=== PATIENT | male | born 1990 | race Caucasian/White ===

== ENCOUNTER 2017-07-03 14:27 | Inpatient (IN) ==
--- NOTE | 2017-07-03 14:38 | Emergency Department Note ---
Disposition Clinical Impression: Suicidal ideation, History of depression, History of anxiety Disposition: Admitted As Inpatient Condition: Good Referrals: NONE,PCP [Primary Care Provider] - Forms: ED Satisfaction Letter Time of Disposition: 19:54 (Admitted to 1A) Psych HPI - General Chief Complaint: ED Psychiatric Symptoms Stated Complaint: SI Time Seen by Provider: 07/03/17 14:38 Source: patient Mode of arrival: ambulatory Limitations: no limitations Nursing Notes Reviewed: Yes Vital Signs Reviewed: Yes - History of Present Illness HPI Narrative: Patient is a 26-year-old male with past medical history of depression, anxiety, bipolar disorder. He says that he has never been on medications for these behavioral health issues. Denies any previous admissions into behavioral health unit, denies any previous suicide attempts or ingestions. He does admit to a previous history of cutting. He presents today due to suicidal ideation with a plan. He said that he was sitting with a shot gun pointed towards his head at home just prior to arrival. He called EMS and came here for further help. He has been under multiple different stressors lately including a recent in the family. Denies any self-harm, cutting, ingestions today. Denies any other somatic complaints of chest pain, shortness breath, nausea, vomiting, fevers, diarrhea, abdominal pain. Denies any homicidal ideation, visual or auditory hallucinations. Admits to marijuana and opioid use but no other drug use or IV drug use. - Related Data Previous Rx's Medication Instructions Recorded Naproxen [EC-Naprosyn] 500 mg PO BID #10 tablet. 07/22/16 Ibuprofen [Motrin] 600 mg PO Q6HR PRN #40 tab MDD 3200 08/11/16 Ibuprofen [Motrin] 600 mg PO Q8HR PRN #15 tab 02/13/17 Penicillin VK 500 mg PO QID #28 tablet 02/13/17 Tramadol HCl [Ultram] 1 - 2 tab PO TID PRN #15 tab 02/13/17 Allergies Allergy/AdvReac Type Severity Reaction Status Date / Time No Known Allergies Allergy Verified 07/03/17 14:29 All systems ED: reviewed and negative except as stated. Constitutional: Denies: fever Cardiovascular: Denies: chest pain, palpitations Respiratory: Denies: cough Gastrointestinal: Denies: abdominal pain, nausea, vomiting, diarrhea, constipation Genitourinary: Denies: urgency, dysuria, frequency, hematuria Integumentary: Denies: rash Neurological: Denies: weakness, numbness, paresthesias Psychiatric: Reports: depression, suicidal thoughts. Denies: homicidal thoughts , auditory hallucinations, visual hallucinations Past Medical History - Past Medical History Attestation: Yes The following information was validated with the patient. Source: patient Medical history: Reports: no medical history Surgical history: Reports: no surgical history Psychiatric history: Reports: ADHD - Social History Smoking Status: Current every day smoker Smokeless Tobacco Status: No Alcohol use: Reports: none Drug use: Reports: none Physical Exam - General Limitations: no limitations General appearance: alert, in no apparent distress - Head Head exam: atraumatic, normocephalic, normal inspection - Eye Eye exam: Present: normal appearance, PERRL, EOMI - ENT ENT exam: normal exam, normal oropharynx, mucous membranes moist - Neck Neck exam: Present: normal inspection, full ROM, trachea midline - Chest Chest inspection: Present: normal inspection, symmetric chest wall rise - Respiratory Respiratory exam: Present: normal lung sounds bilaterally - Cardiovascular Cardiovascular exam: Present: regular rate, normal rhythm, normal heart sounds - Abdominal Exam Abdominal exam: Present: soft, Non-Tender. Absent: tenderness, distention, guarding, rebound, rigidity - Extremities Exam Extremities exam: Present: normal inspection, full ROM. Absent: tenderness, pedal edema - Neurological Exam Neurological exam: Present: alert, oriented X3 - Psychiatric Psychiatric exam: Present: depressed, agitated, flat affect, suicidal ideation. Absent: homicidal ideation - Skin Skin exam: Present: warm, dry, intact, normal color Course Course Narrative: Vitals within normal limits. Physical exam benign. Patient does have suicidal ideation with a plan to use a gun and access to gun at home. Lindstrom slip has been placed on chart. Medical clearance labs ordered. Patient will be evaluated by behavioral [facility]. 15:32 Medically cleared. Positive for marijuana use. 1A called. 19:53 patient has been seen and evaluated by behavioral health team. They have recommended admission for the patient due to suicidal ideation with a plan. Patient will be admitted to the behavioral health floor. Stable prior to admission. Vital Signs Temperature 98.0 F 07/03/17 14:30 Pulse Rate 69 07/03/17 14:30 Respiratory Rate 16 07/03/17 14:30 Blood Pressure 120/77 07/03/17 14:30 O2 Sat by Pulse Oximetry 99 07/03/17 14:30 Temperature 98.0 F 07/03/17 14:30 Pulse Rate 69 07/03/17 14:42 Respiratory Rate 14 07/03/17 14:42 Blood Pressure 120/77 07/03/17 14:42 O2 Sat by Pulse Oximetry 99 07/03/17 14:42 Oxygen Delivery Oxygen Delivery Room Air Psych - MDM Narrative Medical decision making narrative: Vitals within normal limits. Physical exam benign. Patient does have suicidal ideation with a plan to use a gun and access to gun at home. [place] slip has been placed on chart. Medical clearance labs ordered. [facility] 15:32 Medically cleared. Positive for marijuana use. 1A called. 19:53 patient has been seen and evaluated by behavioral health team. They have recommended admission for the patient due to suicidal ideation with a plan. Patient will be admitted to the behavioral health floor. Stable prior to admission. - Lab Data Lab results reviewed: Yes I reviewed the patient's lab results. Result diagrams: 07/03/17 14:53 07/03/17 14:53 Lab Results 07/03/17 07/03/17 07/03/17 Range/Units 14:48 14:48 14:53 WBC 8.7 (4.3-11.1) K/mcL RBC 5.39 (4.19-5.50) M/mcL Hgb 16.9 (12.9-16.9) g/dL Hct 46.9 (37.5-50.1) % MCV 87.0 (83.0-100.0) fL MCH 31.4 (28.0-33.3) pg MCHC 36.0 H (31.6-35.5) g/dL RDW 13.1 (11.5-14.5) % Plt Count 232 (140-400) K/mcL MPV 10.0 (9.4-12.4) fL Immature Gran % 0.2 (0-4) % Seg Neutrophils % 71.3 % Lymphocytes % 21.0 % Monocytes % 5.4 % Eosinophils % 0.8 % Basophils % 1.3 % Neutrophils # 6.2 (1.6-8.9) K/mcL Lymphocytes # 1.8 (0.6-4.6) K/mcL Monocytes # 0.5 (0.0-1.3) K/mcL Eosinophils # 0.1 (0.0-0.6) K/mcL Basophils # 0.1 (0.0-0.2) K/mcL Sodium (136-145) mEq/L Potassium (3.5-4.5) mEq/L Chloride (98-109) mEq/L Carbon Dioxide (19-29) mEq/L BUN (8-26) mg/dL Creatinine (0.72-1.25) mg/dL Est GFR ( Amer) (> 60) Est GFR (Non-Af Amer) (> 60) BUN/Creatinine Ratio (6-26) Glucose (70-99) mg/dL Calculated Osmolality (280-300) Calcium (8.6-10.8) mg/dL Urine Color Yellow (Yellow) Urine Clarity Clear (Clear) Urine pH 6.5 (5.0-8.0) pH Units Ur Specific [place] 1.028 H (1.010-1.025) Urine Protein Negative (Neg-Trace) mg/dL Urine Glucose (UA) Normal (Normal) mg/dL Urine Ketones Negative (Negative) mg/dL Urine Blood Negative (Negative) Urine Nitrite Negative (Negative) Urine Bilirubin Negative (Negative) Urine Urobilinogen Normal (Normal) mg/dL Ur Leukocyte Esterase Negative (Negative) Salicylates (15-30) mg/dL Urine Opiates Screen Negative (Lohngt=665) ng/mL Acetaminophen (10-30) mcg/mL Ur Barbiturates Screen Negative (Btikmg=372) ng/mL Ur Phencyclidine Scrn Negative (Cutoff=25) ng/mL Ur Amphetamines Screen Negative (Oysqml=0813) ng/mL U Benzodiazepines Scrn Negative (Spcmvl=810) ng/mL Urine Cocaine Screen Negative (Cutoff= 300) ng/mL U Marijuana (THC) Screen Positive H (Cutoff = 50) ng/mL Ethyl Alcohol (0-10) mg/dL 07/03/17 Range/Units 14:53 WBC (4.3-11.1) K/mcL RBC (4.19-5.50) M/mcL Hgb (12.9-16.9) g/dL Hct (37.5-50.1) % MCV (83.0-100.0) fL MCH (28.0-33.3) pg MCHC (31.6-35.5) g/dL RDW (11.5-14.5) % Plt Count (140-400) K/mcL MPV (9.4-12.4) fL Immature Gran % (0-4) % Seg Neutrophils % % Lymphocytes % % Monocytes % % Eosinophils % % Basophils % % Neutrophils # (1.6-8.9) K/mcL Lymphocytes # (0.6-4.6) K/mcL Monocytes # (0.0-1.3) K/mcL Eosinophils # (0.0-0.6) K/mcL Basophils # (0.0-0.2) K/mcL Sodium 140 (136-145) mEq/L Potassium 3.9 (3.5-4.5) mEq/L Chloride 105 (98-109) mEq/L Carbon Dioxide 27 (19-29) mEq/L BUN 10 (8-26) mg/dL Creatinine 1.05 (0.72-1.25) mg/dL Est GFR ( Amer) > 60 (> 60) Est GFR (Non-Af Amer) > 60 (> 60) BUN/Creatinine Ratio 10 (6-26) Glucose 97 (70-99) mg/dL Calculated Osmolality 289 (280-300) Calcium 10.2 (8.6-10.8) mg/dL Urine Color (Yellow) Urine Clarity (Clear) Urine pH (5.0-8.0) pH Units Ur Specific [place] (1.010-1.025) Urine Protein (Neg-Trace) mg/dL Urine Glucose (UA) (Normal) mg/dL Urine Ketones (Negative) mg/dL Urine Blood (Negative) Urine Nitrite (Negative) Urine Bilirubin (Negative) Urine Urobilinogen (Normal) mg/dL Ur Leukocyte Esterase (Negative) Salicylates < 5.0 L (15-30) mg/dL Urine Opiates Screen (Xzqnyo=224) ng/mL Acetaminophen < 1.0 L (10-30) mcg/mL Ur Barbiturates Screen (Aqjhvd=748) ng/mL Ur Phencyclidine Scrn (Cutoff=25) ng/mL Ur Amphetamines Screen (Chfxqs=9085) ng/mL U Benzodiazepines Scrn (Hemdfe=513) ng/mL Urine Cocaine Screen (Cutoff= 300) ng/mL U Marijuana (THC) Screen (Cutoff = 50) ng/mL Ethyl Alcohol < 10 (0-10) mg/dL Psychiatric Medical Clearance - Medical Clearance Checklist Medical History: Suicidal ideation (Acute) History of depression (Acute) History of anxiety (Acute) Contusion of shoulder, right (Inactive) Dental abscess (Inactive) Dental caries (Inactive) Toothache (Inactive) Toothache (Inactive) No Social History Section defined Current Vitals: Last Vital Signs Temp 98.0 F 07/03/17 14:30 Pulse 69 07/03/17 14:42 Resp 14 07/03/17 14:42 BP 120/77 07/03/17 14:42 Pulse Ox 99 07/03/17 14:42 Psychiatric Lab Panel: Drug Levels and Toxicity 07/03/17 07/03/17 14:48 14:53 Urine Opiates Screen Negative Acetaminophen < 1.0 L Ur Barbiturates Screen Negative Ur Phencyclidine Scrn Negative Ur Amphetamines Screen Negative U Benzodiazepines Scrn Negative Urine Cocaine Screen Negative U Marijuana (THC) Screen Positive H Ethyl Alcohol < 10 Abnormal Labs: Abnormal lab results MCHC 36.0 g/dL (31.6-35.5) H 07/03/17 14:53 Ur Specific [place] 1.028 (1.010-1.025) H 07/03/17 14:48 Salicylates < 5.0 mg/dL (15-30) L 07/03/17 14:53 Acetaminophen < 1.0 mcg/mL (10-30) L 07/03/17 14:53 U Marijuana (THC) Screen Positive ng/mL (Cutoff = 50) H 07/03/17 14:48 Attestation Statement - Attestation Attestation: I examined this patient and my medical decision-making was reviewed with the Resident Physician. I agree with the documented findings, disposition and treatment plan as described except to the extent set forth below. Suicidal ideations with plan of shooting himself mad. He will not disclose whether he has access to guns. He has not cooperative on arrival and agitated with tangential thought process and impulsive behavior. Plan to admit for psychiatric evaluation
[2017-07-03] MEDS ORDERED: Haloperidol Lactate 5 MG/ML VIAL IM ONE (14:43)
[2017-07-03] MEDS ORDERED: *HR* LORazepam 2 MG/ML VIAL IM ONE (14:44)
[2017-07-03 15:00] LABS: Basophils # 0.1 K/mcL (0.0-0.2); Basophils % 1.3 %; Eosinophils # 0.1 K/mcL (0.0-0.6); Eosinophils % 0.8 %; Hematocrit 46.9 % (37.5-50.1); Hemoglobin 16.9 g/dL (12.9-16.9); Immature Granulocytes % 0.2 % (0-4); Lymphocytes # 1.8 K/mcL (0.6-4.6); Mean Corpuscular Hemoglobin 31.4 pg (28.0-33.3); Monocytes # 0.5 K/mcL (0.0-1.3); Monocytes % 5.4 %; Neutrophils # 6.2 K/mcL (1.6-8.9); Platelet Count 232 K/mcL (140-400); Red Blood Count 5.39 M/mcL (4.19-5.50); Red Cell Distribution Width 13.1 % (11.5-14.5); Segmented Neutrophils % 71.3 %
[2017-07-03 15:04] LABS: Bilirubin,Urine Negative (Negative); Blood,Urine Negative (Negative); Clarity,Urine Clear (Clear); Color,Urine Yellow (Yellow); Glucose,Urine (UA) Normal (Normal); Ketones,Urine Negative (Negative); Leukocyte Esterase,Urine Negative (Negative); Nitrite,Urine Negative (Negative); PH,Urine 6.5 pH Units (5.0-8.0); Protein,Urine Negative (Neg-Trace); Specific Gravity,Urine 1.028 (1.010-1.025); Urobilinogen,Urine Normal (Normal)
[2017-07-03 15:08] LABS: Amphetamine Screen,Urine Negative ng/mL (Cutoff=1000); Barbiturate Screen,Urine Negative ng/mL (Cutoff=200); Benzodiazepines Screen,Urine Negative ng/mL (Cutoff=200); Cannabinoid Screen,Urine Positive ng/mL (Cutoff = 50); Cocaine Screen,Urine Negative ng/mL (Cutoff= 300); Opiate Screen,Urine Negative ng/mL (Cutoff=300); Phencyclidine Screen,Urine Negative ng/mL (Cutoff=25)
[2017-07-03 15:16] LABS: BUN/Creatinine Ratio 10 (6-26); Blood Urea Nitrogen 10 mg/dL (8-26); Calcium 10.2 mg/dL (8.6-10.8); Carbon Dioxide 27 mEq/L (19-29); Chloride 105 mEq/L (98-109); Glucose 97 mg/dL (70-99); Osmolality,Calculated 289 (280-300); Potassium 3.9 mEq/L (3.5-4.5); Sodium 140 mEq/L (136-145); eGFR For African Americans > 60 (> 60); eGFR For Non-African Americans > 60 (> 60)
[2017-07-03 15:17] LABS: Acetaminophen < 1.0 mcg/mL (10-30); Ethanol < 10 mg/dL (0-10); Salicylate < 5.0 mg/dL (15-30)
[2017-07-03] MEDS ORDERED: ChlorproMAZINE 25 MG/ML AMPUL IM ONE (21:11)
[2017-07-03] MEDS ORDERED: Ibuprofen 400 MG TABLET PO PRN (21:44)
[2017-07-03] MEDS ORDERED: *HR* LORazepam 2 MG/ML VIAL IM PRN (21:44)
[2017-07-03] MEDS ORDERED: hydrOXYzine pamoate 25 MG CAPSULE PO PRN (21:44)
[2017-07-03] MEDS ORDERED: traZODone 50 MG TABLET PO PRN (21:44)
[2017-07-03] MEDS ORDERED: Mag Hydrox/Al Hydrox/Simeth 30 ML UDC PO PRN (21:44)
[2017-07-03] MEDS ORDERED: Haloperidol Lactate 5 MG/ML VIAL IM PRN (21:44)
[2017-07-03] MEDS ORDERED: *HR* LORazepam 1 MG TABLET PO PRN (21:44)
[2017-07-03] MEDS ORDERED: MOM Conc 10 ML UD.LIQ PO PRN (21:44)
--- NOTE | 2017-07-04 10:53 | Psychiatry History & Physical ---
Date of Encounter: 07/04/17 Time of Encounter: 10:35 History of Present Illness Patient Stated Chief Complaint: "I made a mistake." Medicare Admission Attestation: For traditional Medicare patients the provided hospital inpatient services are reasonable and necessary and in the case of services not specified as inpatient -only under 42 CFR 419.22 (n), that they are appropriately provided as inpatient services in accordance 42 CFR 412.3. For Critical Access Hospital the patient may reasonably be expected to be discharged or transferred to a hospital within 96 hours after admission to the Critical Access Hospital. Admitted From: Emergency Dept History of Present Illness: Mr. Justin is a 26 year old male with a history of polysubstance abuse, remote history of bipolar diagnosis, increasing depression with suicide attempt via gun. He presented to the hospital brought in by his family who called the culturist. Patient [place] from the grandparents house and stuck it in his mouth intending to kill himself but his stopped him. Patient reports that he has had trouble dealing with the of his father which actually occurred about 6 years ago. Recently his [id number] 11 years suddenly from a heroin overdose. Patient states that this really hit him hard and he has been very depressed about this. When probing deeper, patient does report he uses opiate pain pills, marijuana as well as alcohol. We discussed that some of these feelings maybe be her of his own issues with addiction and concerned for his own health. Patient states he does not want to drink or use drugs anymore because "it is not worth it." However, he does not feel the need to stay in the hospital even though he said that he attempted to kill himself. "I am fine now." He is willing to try an antidepressant and go to outpatient counseling. He does not seem invested in any kind of inpatient treatment here. He does report recent low mood, irritability and mood swings. He states that the suicidal thoughts were more recent and somewhat impulsive. He does admit that his almost left him and took the kids because of his increasing depression of late. Patient's was contacted at [phone]. Greg reports that patient does struggle with depression but he has not seemed fine until recently until her sister suddenly. After her sister she noticed an increasing depression and irritability. felt that these issues were relatively minor and did not state that she was planning to leave him and take the kids. She is supportive of him and wants to get help. She does feel comfortable with him coming back home once he has received help. is not aware of what drugs patient may or may not be using. Past Med Surg Social Fam HX - Past Medical History Medical history: no medical history - Past Psychiatric History Psychiatric history: Reports: ADHD, bipolar. Denies: prior suicide attempt, previous psychiatric hospitalization Past psychiatric history details: Patient's only suicide attempt his recent one prior to admission. He denies previous psychiatric admissions. He has been previously diagnosed with ADHD and bipolar disorder but has not been on meds for several years. He also has a history of marijuana and opiate pain pill usage as well as alcohol usage. Family psychiatric history: Yes Family Psychiatric History Details: Patient's mother had bipolar disorder. Uncle has depression and father also had depression. Family History of Suicide: None - Past Surgical History Surgical History: no surgical history - Social History Smoking Status: Current every day smoker Packs per day: 0.5ppd Smokeless Tobacco Status: No Alcohol use: none, occasionally Drug use: opiates, marijuana Occupational status: unemployed Current living situation: Home - Independent, With Family Activity Level: Independent ambulation Medications & Allergies No Known Home Drugs 07/03/17 [History] 3 Allergy/AdvReac Type Severity Reaction Status Date / Time No Known Allergies Allergy Verified 07/03/17 14:29 Review of Systems Constitutional: Denies: fever, chills, weakness, weight change Eyes: Denies: eye pain, vision change Ears, Nose, Throat: Denies: ear pain, throat pain, dental pain, hearing loss, congestion Cardiovascular: Denies: chest pain, palpitations, dyspnea on exertion Respiratory: Denies: cough, dyspnea, wheezes Gastrointestinal: Denies: abdominal pain, nausea, vomiting, diarrhea, constipation Genitourinary male: Denies: urgency, dysuria, frequency, genital lesions Genitourinary female: Denies: urgency, dysuria, frequency, abnormal menses, dyspareunia Musculoskeletal: Denies: joint swelling, joint pain Integumentary: Denies: rash, lesions, pruritus Neurological: Denies: headache, weakness, numbness, memory loss Psychiatric: Reports: depression, anxiety, difficulty concentrating, hopelessness, irritability, mood swings. Denies: suicidal ideation Endocrine: Denies: fatigue, heat or cold intolerance Hematologic/Lymphatic: Denies: easy bruising, lymphadenopathy Allergic/Immunologic: Denies: urticaria, itchy eyes Mental Status Exam Patient orientation: Yes Person, Yes Time, Yes Place Level of alertness: Alert Patient appearance: Unkempt, Disheveled Behavior: agitated, restless, uncooperative, guarded Psychomotor activity: Normal Eye contact: Diverts Contact Mood description: Euthymic/stable Affect description: labile, tearful, dysphoric, incongruent with mood Speech pattern: Normal rate, Normal rhythm, Normal tone Speech volume: Loud Thought content: No Suicidal ideation, No Homicidal ideation Perceptual disturbances: No Auditory hallucinations, No Visual hallucinations Attention span: Capable of Focused Attention Memory description: Grossly Intact Patient reliability: Questionable Historian Intelligence estimate: Average Judgment: Poor Insight: None Exam - HEENT Head exam IM: Present: atraumatic Eye exam IM: Present: EOMI - Neurological Neurological exam IM: Present: CN II-XII intact - Extremities Extremities exam IM: Present: full ROM - Skin Skin exam IM: Present: dry, warm Results - Vital Signs Vital signs: Temp Pulse Resp BP Pulse Ox 98.3 F 16 63 120/75 99 07/04/17 09:00 07/04/17 09:00 07/04/17 09:00 07/04/17 09:00 07/03/17 14:42 - Labs Labs: Laboratory Last Values WBC 8.7 K/mcL (4.3-11.1) 07/03/17 14:53 RBC 5.39 M/mcL (4.19-5.50) 07/03/17 14:53 Hgb 16.9 g/dL (12.9-16.9) 07/03/17 14:53 Hct 46.9 % (37.5-50.1) 07/03/17 14:53 MCV 87.0 fL (83.0-100.0) 07/03/17 14:53 MCH 31.4 pg (28.0-33.3) 07/03/17 14:53 MCHC 36.0 g/dL (31.6-35.5) H 07/03/17 14:53 RDW 13.1 % (11.5-14.5) 07/03/17 14:53 Plt Count 232 K/mcL (140-400) 07/03/17 14:53 MPV 10.0 fL (9.4-12.4) 07/03/17 14:53 Immature Gran % 0.2 % (0-4) 07/03/17 14:53 Seg Neutrophils % 71.3 % 07/03/17 14:53 Lymphocytes % 21.0 % 07/03/17 14:53 Monocytes % 5.4 % 07/03/17 14:53 Eosinophils % 0.8 % 07/03/17 14:53 Basophils % 1.3 % 07/03/17 14:53 Neutrophils # 6.2 K/mcL (1.6-8.9) 07/03/17 14:53 Lymphocytes # 1.8 K/mcL (0.6-4.6) 07/03/17 14:53 Monocytes # 0.5 K/mcL (0.0-1.3) 07/03/17 14:53 Eosinophils # 0.1 K/mcL (0.0-0.6) 07/03/17 14:53 Basophils # 0.1 K/mcL (0.0-0.2) 07/03/17 14:53 Sodium 140 mEq/L (136-145) 07/03/17 14:53 Potassium 3.9 mEq/L (3.5-4.5) 07/03/17 14:53 Chloride 105 mEq/L (98-109) 07/03/17 14:53 Carbon Dioxide 27 mEq/L (19-29) 07/03/17 14:53 BUN 10 mg/dL (8-26) 07/03/17 14:53 Creatinine 1.05 mg/dL (0.72-1.25) 07/03/17 14:53 Est GFR ( Amer) > 60 (> 60) 07/03/17 14:53 Est GFR (Non-Af Amer) > 60 (> 60) 07/03/17 14:53 BUN/Creatinine Ratio 10 (6-26) 07/03/17 14:53 Glucose 97 mg/dL (70-99) 07/03/17 14:53 Calculated Osmolality 289 (280-300) 07/03/17 14:53 Calcium 10.2 mg/dL (8.6-10.8) 07/03/17 14:53 Urine Color Yellow (Yellow) 07/03/17 14:48 Urine Clarity Clear (Clear) 07/03/17 14:48 Urine pH 6.5 pH Units (5.0-8.0) 07/03/17 14:48 Ur Specific [place] 1.028 (1.010-1.025) H 07/03/17 14:48 Urine Protein Negative mg/dL (Neg-Trace) 07/03/17 14:48 Urine Glucose (UA) Normal mg/dL (Normal) 07/03/17 14:48 Urine Ketones Negative mg/dL (Negative) 07/03/17 14:48 Urine Blood Negative (Negative) 07/03/17 14:48 Urine Nitrite Negative (Negative) 07/03/17 14:48 Urine Bilirubin Negative (Negative) 07/03/17 14:48 Urine Urobilinogen Normal mg/dL (Normal) 07/03/17 14:48 Ur Leukocyte Esterase Negative (Negative) 07/03/17 14:48 Salicylates < 5.0 mg/dL (15-30) L 07/03/17 14:53 Urine Opiates Screen Negative ng/mL (Yhnlje=713) 07/03/17 14:48 Acetaminophen < 1.0 mcg/mL (10-30) L 07/03/17 14:53 Ur Barbiturates Screen Negative ng/mL (Pksbyy=127) 07/03/17 14:48 Ur Phencyclidine Scrn Negative ng/mL (Cutoff=25) 07/03/17 14:48 Ur Amphetamines Screen Negative ng/mL (Tefgop=1618) 07/03/17 14:48 U Benzodiazepines Scrn Negative ng/mL (Nebxgp=866) 07/03/17 14:48 Urine Cocaine Screen Negative ng/mL (Cutoff= 300) 07/03/17 14:48 U Marijuana (THC) Screen Positive ng/mL (Cutoff = 50) H 07/03/17 14:48 Ethyl Alcohol < 10 mg/dL (0-10) 07/03/17 14:53 Assessment and Plan (1) Adjustment disorder Current visit: Yes Status: Acute Plan: Admit inpatient for safety and stabilization, Close observation, Suicide Precautions per unit protocol, Encourage participation in unit milieu, Group Therapy, Monitor sleep, Monitor appetite Additional Plan: Patient has a remote history of bipolar diagnosis but has not been on meds and denies history of manic symptoms or a manic episode. He may have depression with comorbid substance abuse that is sometimes confused with bipolar disorder. At this point his suicide attempt does appear to be a reaction to his sister-in- law's . Risks, benefits, side effects, alternatives discussed w/pt: Yes Patient agreeable to treatment: Yes Qualifiers: Adjustment disorder type: with mixed disturbance of emotions and conduct Qualified Code(s): F43.25 - Adjustment disorder with mixed disturbance of emotions and conduct (2) Mood disorder Current visit: Yes Status: Acute Plan: Admit inpatient for safety and stabilization, Close observation, Suicide Precautions per unit protocol, Encourage participation in unit milieu, Group Therapy, Monitor sleep, Monitor appetite Additional Plan: Patient may have underlying depressive disorder versus bipolar disorder. Unclear if patient would have bipolar 2 or 1. At this time there is no need for mood stabilizer as we do not have a clear history of a manic episode. We will start Celexa for depression symptoms and monitor patient closely. Encourage patient to attend group and unit activities to gain insight into his behaviors and his illness. Risks, benefits, side effects, alternatives discussed w/pt: Yes Patient agreeable to treatment: Yes (3) Polysubstance dependence including opioid type drug, episodic abuse Current visit: Yes Status: Acute Plan: Admit inpatient for safety and stabilization, Close observation, Suicide Precautions per unit protocol, Encourage participation in unit milieu, Group Therapy, Monitor sleep, Monitor appetite Additional Plan: Patient's drug and alcohol use is affecting his mood and his relationship with his . Encouraged patient to discontinue use and consider substance abuse counseling. Monitor for withdrawal and monitor vitals. Risks, benefits, side effects, alternatives discussed w/pt: Yes Patient agreeable to treatment: Yes Plans for Post Hospital Care: Home
--- NOTE | 2017-07-05 09:42 | Discharge Summary ---
Date of Encounter: 07/05/17 Time of Encounter: 08:30 Diagnosis - Discharge Diagnosis (1) Adjustment disorder Priority: Primary Status: Acute Qualifiers: Adjustment disorder type: with mixed disturbance of emotions and conduct Qualified Code(s): F43.25 - Adjustment disorder with mixed disturbance of emotions and conduct (2) Mood disorder Status: Acute (3) Polysubstance dependence including opioid type drug, episodic abuse Priority: Secondary Status: Acute Medications - Discharge Medications Prescriptions: hydrOXYzine pamoate [HydrOXYzine Pamoate] 25 mg PO TID PRN #90 capsule PRN Reason: Anxiety hydrOXYzine pamoate [HydrOXYzine Pamoate] 25 mg PO TID PRN #90 capsule 07/05/17 [Rx] 3 Allergy/AdvReac Type Severity Reaction Status Date / Time No Known Allergies Allergy Verified 07/03/17 14:29 Provider Date of admission: 07/03/17 21:28 Primary care physician: PCP NONE Discharging clinician: Chitra Spencer Assessment and Plan - Patient/Caregiver Discharge Instructions Activity: resume usual activities as tolerated Diet: regular diet - Follow up Plan Follow up with: [facility] [Outside] (The above appointment is with , for outpatient psychiatric assessment and medication management services. Please arrive 30 minutes early to complete paperwork. Please bring your photo ID ( bring proof of address if you do not have an ID) and medication list. This is the first available appointment. You may contact the office regularly to check for cancellations that may allow you to be seen sooner. ) [facility] - 07/18/17 1:00 pm (The above appointment is with [facility]. When you come to your first appointment, you will be completing paperwork, meeting with a counselor, and developing a treatment plan. You will receive follow- up appointments for on-going services , which could include community support, mental health and substance abuse counseling, groups/partial hospitalization programming and medication assisted treatment. Please bring the following with you to your first visit to the clinic: 1) proof of household income (two consecutive pay stubs, social security award letter, bank statement, statement letter from [facility], child support statement, IRS 1040 or W2 form, or a statement from the person who financially supports you stating they help provide for your basic needs), 2) proof of residency (drivers license, a piece of mail showing your address, a statement from person you live with verifying you live at their address), 3) your social security card, 4) photo ID, 5) your insurance card (if you have commercial insurance you must call to obtain a prior authorization number before you arrive to your first appointment) and 6) if you do not have insurance but have applied for Medicaid, please bring verification you have applied. This is the first available appointment. You may contact the office regularly to check for cancellations that may allow you to be seen sooner. ) Functional capacity at discharge: independent ambulation Overall status at discharge: Stable Disposition: Home, Self-Care Hospital Course Hospital course: Mr. Justin is a 26 year old male with a history of polysubstance abuse, recent impulsive suicide attempt and anxiety symptoms who presented to the hospital after putting a gun in his mouth in a suicide attempt. His stopped him from pulling the trigger. Patient was admitted to for psychiatric stabilization. He was incorporated into the therapeutic milieu and offer group and individual as well as recreational therapy. He was also offered psychoeducational materials and supportive therapy. He is placed on suicide precautions and close observation per unit protocol. Initially the patient was very upset about being admitted and stated that he knows he should not have tried to kill himself but did not feel that he needed to stay in the hospital. He was observed in the ER for some time prior to bed becoming available. He was then transferred to for further stabilization. Patient initially was not interested medication but did take the hydroxyzine as needed for agitation and anxiety which was helpful. We also discussed the role that his drug use may be playing in his marriage as well as in his mood issues. Patient verbalized understanding that he needs to discontinue opiate and other drug because of how it is affecting his behavior. Patient reports that he would like to consider getting substance abuse counseling in addition to following up with a therapist. At the time of discharge he denied suicidal ideations. He reports he feels very glad that he gets a "second chance at life." He is discharged in stable condition. - Time Spent with Patient Total time spent providing and/or coordinating discharge services: Greater than 30 minutes Quality - Multiple Antipsychotics Patient discharged on 2 or more antipsychotic medications: No Procedures - Procedures Procedures: Medication Management, Crisis Stabilization, Supportive Therapy, Group Therapy, Psychoeducational Therapy Mental Status Exam - Mental Status Exam Patient orientation: Yes Person, Yes Time, Yes Place Level of alertness: Alert Patient appearance: Appropriate, Well Groomed Behavior: calm, cooperative Psychomotor activity: Normal Eye contact: Maintains Eye Contact Mood description: Euthymic/stable Affect description: congruent with mood, full range Speech pattern: Normal rate, Normal rhythm, Normal tone Speech Volume: Normal Thought process: Linear, Goal Oriented Thought Content: No Suicidal ideation, No Homicidal ideation, No Overt delusions Perceptual Disturbances: No Auditory hallucinations, No Visual hallucinations Judgment: Limited Insight: Partial
[2017-07-05 11:20] VITALS: BP 116/74
== END 2017-07-05 11:15 | disposition home or self-care (01) | DRG 755 ==
LOC: EMEROO 14:27 → 1ANU 21:28
PROVIDERS: ADMIT Student in an Organized Health Care Education/Training Program; ATTEND Student in an Organized Health Care Education/Training Program